=== PATIENT | male | born 1930 | race Caucasian/White ===

== ENCOUNTER 2017-10-23 14:14 | Emergency (ER) | payer MEDICARE ==
[~2017-10-23] VITALS: Ht 180.3 cm; Wt 89.0 kg
[2017-10-23 14:23] VITALS: BP 190/79; PULSE 89; RESP 20; TEMP 98.2; O2SAT 96
[2017-10-23] MEDS ORDERED: GLIP5TAB8 PO (14:35)
[2017-10-23] MEDS ORDERED: WARF-20 PO (14:35)
[2017-10-23] MEDS ORDERED: METF500T PO (14:35)
[2017-10-23] MEDS ORDERED: ACETAMINOPHEN/HYDROcodone 325 MG/5 MG TAB PO ONE (15:00)
[2017-10-23] MEDS ORDERED: SIMV20TA PO (15:21)
[2017-10-23] MEDS ORDERED: NORC5TAB PO (15:53)
--- NOTE | 2017-10-23 15:53 | PD ---
HPI Chief Complaint: Fall Time Seen by Provider: 14:33 Travel History International Travel<30 days: No Contact w/Intl Traveler<30days: No Traveled to known affect area: No History of Present Illness HPI Patient is an 86-year-old male presents emergency department for evaluation of left sided rib pain after a fall approximate 4 hours prior to arrival. The patient states that he didn't think anything of it at that time but gradually the pain is getting worse and hurts when he takes a deep breath. Patient states the pain is moderate, gradually worsening, left-sided rib cage, context as above. No abdominal pain no nausea vomiting diarrhea. Does endorse some constipation. PFSH Past Medical History Hx Anticoagulant Therapy: Yes (COUMADIN ) Atrial Fibrillation: Yes Cancer: Yes (colon) Diabetes: Yes Patient Takes Glucophage: Yes Diminished Hearing: No Kidney Stones: Yes Influenza Vaccination: Yes Past Surgical History Surgical History: No Previous Surgery Abdominal Surgery: Yes (colon resection) Social History Alcohol Use: Yes Tobacco Use: No Allergies-Medications (Allergen,Severity, Reaction): Coded Allergies: No Known Allergies (Verified Allergy, Unknown, 10/23/17) Reported Meds & Prescriptions Reported Meds & Active Scripts Active One[place] (Hydrocodone-Acetaminophen) 5 Mg-325 Mg Tab 1 Tab PO Q6H PRN Reported Simvastatin 20 Mg Tab 20 Mg PO HS Warfarin 4 Mg Tab 4.5 Mg PO DAILY Glipizide 5 Mg Tab 5 Mg PO BIDAC Take 30 minutes before a meal Metformin (Metformin HCl) 500 Mg Tab 500 Mg PO BIDPC Review of Systems Except as stated in HPI: all other systems reviewed are Neg Physical Exam Narrative GENERAL: Well-developed well-nourished no obvious distress SKIN: Focused skin assessment warm/dry. HEAD: Atraumatic. Normocephalic. EYES: Pupils equal and round. No scleral icterus. No injection or drainage. ENT: No nasal bleeding or discharge. Mucous membranes pink and moist. NECK: Trachea midline. No JVD. CARDIOVASCULAR: Regular rate and rhythm. No murmur appreciated. RESPIRATORY: No accessory muscle use. Clear to auscultation. Breath sounds equal bilaterally. GASTROINTESTINAL: Abdomen soft, non-tender, nondistended. Hepatic and splenic margins not palpable. MUSCULOSKELETAL: No obvious deformities. No clubbing. No cyanosis. No edema. Small developing contusion to the left side of the chest approximately the level of the fifth rib. Lungs are clear. No midline CT or L-spine tenderness, extremities are atraumatic. NEUROLOGICAL: Awake and alert. No obvious cranial nerve deficits. Motor grossly within normal limits. Normal speech. PSYCHIATRIC: Appropriate mood and affect; insight and judgment normal. Data Data Last Documented VS Vital Signs Date Time Temp Pulse Resp B/P (MAP) Pulse Ox O2 Delivery O2 Flow Rate FiO2 10/23/17 16:20 18 10/23/17 14:23 98.2 89 190/79 (116) 96 Orders Orders Chest, Pa & Lat (10/23/17 ) Acetamin-Hydrocod 325-5 Mg (Oneida 5-325 (10/23/17 15:00) Resp Request For Service (10/23/17 ) Resp Incentive Spirometry (10/23/17 ) Ed Discharge Order (10/23/17 16:02) MDM Medical Decision Making Medical Screen Exam Complete: Yes Emergency Medical Condition: Yes Differential Diagnosis Fall, rib injury, internal injury unlikely, neck injury unlikely, head injury unlikely. Narrative Course Patient roomed emergency department, given pain medicine, becoming impatient and wants to leave to get home. Still polite and cooperative I reviewed his chest x-ray shows no obvious injury pattern. He is provided incentive spirometer discussed pain management, no indication further workup at this time. Discussed return to ED criteria follow-up with primary care physician Diagnosis Primary Impression: Chest wall pain Patient Instructions: Chest Wall Pain (GEN), General Instructions Med/Other Pt SpecificInfo: Prescription(s) given Scripts Hydrocodone-Acetaminophen (Oneida) 5 Mg-325 Mg Tab 1 TAB PO Q6H Y for PAIN, #15 TAB 0 Refills Prov: Jaime Cruz MD 10/23/17 Disposition: 01 DISCHARGE HOME Condition: Stable Jaime Cruz MD Oct 23, 2017 15:53
[2017-10-23 16:20] VITALS: RESP 18
--- NOTE | 2017-10-23 16:26 | RADRPT ---
EXAM DATE/TIME: 10/23/2017 15:38 [facility] COMPARISON: No previous studies available for comparison. INDICATIONS : Left sided pain in chest post fall. MEDICAL HISTORY : None. SURGICAL HISTORY : None. ENCOUNTER: Initial ACUITY: 1 day PAIN SCORE: 8/10 LOCATION: Left chest FINDINGS: Mild linear parenchymal opacities at the lung bases, more prominently on the left. No pneumothorax. C ardiac silhouette is enlarged. Bony thorax is grossly intact without evidence for significant displac ed rib fractures. CONCLUSION: 1. Compensated cardiomegaly. 2. Bibasilar linear airspace disease, presumably atelectasis. 3. No pneumothorax or significant displaced rib fractures. Kendall Ortiz MD on October 23, 2017 at 16:21 Board Certified Radiologist. This report was verified electronically.
== END 2017-10-23 16:11 | disposition home or self-care (01) ==
LOC: PHED 14:14
DX: R07.89 Other chest pain (principal)
CPT/HCPCS: 71020; 94150; 99283